=== PATIENT | male | born 1965 | race Caucasian/White ===

== ENCOUNTER 2024-03-12 18:01 | Emergency (ER) | payer MEDICAID ==
[~2024-03-12] VITALS: Ht 175.3 cm; Wt 80.0 kg
[2024-03-12 18:05] VITALS: O2SAT 98
[2024-03-12 18:52] LABS: HEMATOCRIT. 41.6 % (42.0-52.0); HEMOGLOBIN. 14.7 g/dL (14.0-18.0); MEAN CORPUSCULAR HEMOGLOBIN 32.2 pg (28.0-32.0); MEAN CORPUSCULAR HGB CONC 35.4 g/dL (31.0-37.0); MEAN CORPUSCULAR VOLUME 90.9 fL (80.0-94.0); MEAN PLATELET VOLUME 9.3 fl (7.4-10.4); PLATELET 135 x1000/uL (130-400); RED BLOOD CELL COUNT 4.57 mill/uL (4.7-6.1); RED CELL DISTRIBUTION WIDTH 13.8 % (11.6-14.6); WHITE BLOOD COUNT 8.5 x1000/uL (4.5-11.0)
[2024-03-12 18:55] LABS: DIFFERENTIAL COMMENT 1
[2024-03-12 19:06] LABS: CARBON DIOXIDE 24 mEq/L (21-32); CHLORIDE 105 mEq/L (98-107); POTASSIUM 3.5 mEq/L (3.5-5.1); SODIUM 138 mEq/L (136-145)
[2024-03-12 19:07] LABS: CALCIUM 8.8 mg/dL (8.7-10.4)
[2024-03-12 19:11] LABS: CREATININE 0.7 mg/dL (0.6-1.3)
[2024-03-12 19:12] LABS: GLUCOSE 132 mg/dL (70-105); UREA NITROGEN BLOOD 14 mg/dL (9-23)
[2024-03-12 19:13] LABS: ALANINE AMINOTRANSFERASE 23 IU/L (10-49); ASPARTATE AMINOTRANSFERASE 33 IU/L (<34)
[2024-03-12 19:14] LABS: BILIRUBIN TOTAL 0.4 mg/dL (0.1-1.0); PROTEIN TOTAL 7.6 g/dL (6.0-8.3)
[2024-03-12] MEDS: LORAZEPAM 2MG/ML INJ IM ONE (19:16)
[2024-03-12 19:26] LABS: INR 1.1; PROTHROMBIN TIME 11.7 sec (9.6-11.0)
[2024-03-12 19:39] LABS: BILIRUBIN DIRECT < 0.1 mg/dL (<=3.0); ETHANOL BLOOD < 10 mg/dL (<10)
[2024-03-12 20:06] LABS: PLATELET ESTIMATE NORMAL
[2024-03-12 23:23] VITALS: BP 131/83; PULSE 104; RESP 19
[2024-03-12] MEDS ORDERED: ASPI-1406 MT (23:29)
[2024-03-12] MEDS ORDERED: KEPP500 MT (23:29)
[2024-03-12 23:45] VITALS: TEMP 101
[2024-03-12] MEDS: ACETAMINOPHEN 325MG TABLET PO ONE (23:45)
== END 2024-03-12 23:47 | disposition home or self-care (01) ==
LOC: ER 18:01
DX: R51.9 Headache, unspecified (principal); R56.9 Unspecified convulsions; I10 Essential (primary) hypertension
CPT/HCPCS: 80076; 80048; 80320; 85025; 85610; 36415; 70450; 96372; 99285; J2060; G0480